=== PATIENT | female | born 1995 | race Caucasian/White ===

== ENCOUNTER 2016-09-25 21:57 | Emergency (ER) | payer OTHER, MEDICAID ==
[2016-09-25] MEDS ORDERED: IBUPROFEN 600 MG TABLET PO ONE (23:59)
== END 2016-09-26 00:07 | disposition home or self-care (01) ==
DX: S63.501A Unspecified sprain of right wrist, initial encounter (principal); X50.1XXA Overexertion from prolonged static or awkward postures, initial encounter; F17.200 Nicotine dependence, unspecified, uncomplicated; Z79.52 Long term (current) use of systemic steroids; J45.909 Unspecified asthma, uncomplicated
CPT/HCPCS: 1040M; 73110; 99282; A9270